=== PATIENT | female | born 1955 | race Caucasian/White ===

== ENCOUNTER 2020-07-21 09:51 | Outpatient (REF) | payer OTHER, SELFPAY ==
--- NOTE | 2020-07-21 09:58 | XR_ITS ---
EXAMINATION: XR ANKLE, LEFT CLINICAL INFORMATION: Pain left ankle. COMPARISON: None TECHNIQUE: AP, lateral, and mortise views of the left ankle. FINDINGS: There is mild medial malleolar soft tissue swelling. No visible acute fracture, dislocation or subluxation seen. A small calcaneal heel and retrocalcaneal enthesophytes are visualized. Ankle mortise and subtalar joints are normal. XR/XR ankle LT min 3V IMPRESSION: Mild medial malleolar soft tissue swelling. No visible acute fracture, dislocation or subluxation seen. Small calcaneal heel and retrocalcaneal enthesophytes.
[2020-07-21 11:53] LABS: Hematocrit 44.2 % (37-47); Hemoglobin 14.2 g/dl (12.0-16.0); Mean Corpuscular HGB Conc 32.1 g/dl (31.0-35.0); Mean Corpuscular Hemoglobin 27.5 pg (27.0-33.0); Mean Corpuscular Volume 85.7 fL (80-98); Mean Platelet Volume 11.2 fL (9.4-12.3); Platelet Count 197 X10*3/uL (160-400); Red Blood Count 5.16 X10*6/uL (4.20-5.50); Red Cell Distribution Width 13.7 % (11.0-16.0); White Blood Count 4.1 X10*3/uL (4.8-10.8)
[2020-07-21 12:12] LABS: Alanine Aminotransferase 32 U/L (0-31); Albumin Level 4.3 g/dL (3.5-5.0); Alkaline Phosphatase 88 U/L (39-117); Anion Gap 10 (12-20); Aspartate Amino Transferase 20 U/L (5-31); Bilirubin Total 1.8 mg/dL (0.0-1.0); Blood Urea Nitrogen 19 mg/dL (9-16); Calcium 8.7 mg/dL (8.4-10.2); Carbon Dioxide 30 mmol/L (22-29); Chloride 105 mmol/L (96-108); Cholesterol 160 mg/dL; Estimated Glomerular Filt Rate > 60; Glucose Fasting 93 mg/dL (60-99); HDL Cholesterol 40 mg/dL; Iron 74 mcg/dL (30-160); LDL Cholesterol Calculated 98 mg/dl; Percent Iron Saturation 22 % (15-50); Potassium 4.4 mmol/l (3.3-5.1); Sodium 141 mmol/L (135-145); Total Iron Binding Capacity 334 mcg/dL (228-428); Total Protein 7.1 g/dL (6.5-8.0); Triglycerides 110 mg/dL; Unsaturated Iron Binding 260 ug/dL
[2020-07-21 12:36] LABS: TSH reflex Free T4 1.09 mIU/mL (0.32-4.0)
== END 2020-07-21 09:52 | disposition home or self-care (01) ==
LOC: HO.HMGCLDS 09:51
PROVIDERS: PCP Internal Medicine; Visit Provider Internal Medicine
DX: Z00.00 Encounter for general adult medical examination without abnormal findings (principal); M25.572 Pain in left ankle and joints of left foot; E78.5 Hyperlipidemia, unspecified; G25.81 Restless legs syndrome; F32.9 Major depressive disorder, single episode, unspecified
CPT/HCPCS: 36415; 73610; 80053; 80061; 83540; 84443; 85027

== ENCOUNTER 2020-11-01 07:40 | Outpatient (REF) | payer OTHER, SELFPAY ==
--- NOTE | ~2020-11-01 | CT_ITS ---
EXAMINATION: CT CHEST WITH CONTRAST CLINICAL INFORMATION: Enlarged lymph nodes COMPARISON: None TECHNIQUE: Multidetector volumetric CT imaging of the chest was obtained after the administration of 65 mL of Omnipaque 350 intravenous contrast without immediate adverse reactions. Axial MIP volume rendering provided. Sagittal and coronal reformatted images were obtained. This CT examination was performed using dose optimization techniques as appropriate, variously including the following: *Automated exposure control *Adjustment of mA and/or kV according to patient size (this includes techniques or standardized protocols for targeted exams where dose is matched to indication/reason for exam; i.e. extremities or head) *Use of iterative reconstruction technique DLP: 189 mGy-cm FINDINGS: SALES CENTER MANAGER: Mediastinal and hilar lymphadenopathy. LUNGS: There are multiple pulmonary nodules. There is a 3 mm left upper lobe nodule axial image 32 series 7. There is a 5 x 6 mm left upper lobe nodule axial image 43 series 7. There is a 4 mm peripheral or subpleural right upper lobe nodule axial image 51 series 7. There is a 4 mm peripheral or subpleural left upper lobe nodule adjacent to the mediastinal surface axial image 58 series 7. There is a 6 mm right upper lobe nodule axial image 72 series 7. There is a 8 x 14 mm central right upper lobe nodule adjacent to the spine and axial image 72 series 7. There is a 3 mm peripheral or subpleural left upper lobe nodule adjacent to the mediastinum axial image 78 series 7. There is a 3 mm peripheral or subpleural lingular nodule adjacent to the fissure axial image 103 series 7. There is a 3 mm peripheral or subpleural right middle lobe nodule axial image 1:15 series 7. There is a 4 mm peripheral or subpleural left lower lobe nodule axial image 129 series 7. There is a 4 mm peripheral or subpleural left lower lobe nodule axial image 140 series 7. MEDIASTINUM: There is diffuse mediastinal and bilateral hilar lymphadenopathy. Largest lymph nodes are a 2 x 2.5 cm right paratracheal lymph node, a 2 x 3 cm right subcarinal mediastinal lymph node and a 2 x 2.5 cm AP window lymph node. The heart does not appear enlarged. There is no pericardial effusion. There is no coronary artery calcification. The thoracic aorta is normal in caliber. The visualized thyroid gland is unremarkable. PLEURA: There is no pleural effusion. No pleural mass or thickening. AXILLA: There are small right axillary and bilateral lower cervical lymph nodes. No chest wall mass is seen. UPPER ABDOMEN: The spleen is not completely imaged but may be prominent. There are 2 small 5 mm low-attenuation liver lesions that are difficult to characterize but may represent small cysts, axial image 48 series 3 in the lateral segment of the left lobe and axial image 40 series 3 high in the dome of the right lobe. OSSEOUS STRUCTURES: There are degenerative changes of the spine. CT/CT chest w con IMPRESSION: Diffuse mediastinal and bilateral hilar lymphadenopathy. Multiple bilateral pulmonary nodules, predominately in the upper lobes. Infectious, inflammatory and neoplastic processes should be considered. In particular, sarcoidosis, lymphoma and metastatic disease should be considered. The spleen is not completely imaged but appears prominent. Findings will be communicated by the [employer] work flow rpg programmer analyst Amanda Miranda.
[2020-11-01] MEDS: iohexoL 350 MG/ML 100 ML INFUS..BTL IV (09:01)
== END 2020-11-01 07:41 | disposition home or self-care (01) ==
LOC: HO.CT 07:40
PROVIDERS: PCP Internal Medicine; Visit Provider Internal Medicine
DX: R59.0 Localized enlarged lymph nodes (principal)
CPT/HCPCS: 71260; Q9967

== ENCOUNTER 2023-07-25 07:51 | Outpatient (AMB) | payer OTHER, SELFPAY ==
[2023-07-25 08:03] VITALS: BP 112/72; PULSE 63; O2SAT 97; BMI 44.3
--- NOTE | 2023-07-25 08:03 | MHC.PC.OV ---
Vital Signs 07/25/23 08:03 Height 5 ft 4 in Weight 258 lb BMI 44.3 BP 112/72 Blood Pressure Location Lt brachial Position Sitting Pulse 63 Pulse Source Pulse Oximeter Pulse Oximetry (%) 97 Oxygen Delivery Method Room Air Intake Visit Reasons: Annual PE Intake Note: Pt is here today for PE. Allergies No Known Allergies Allergy (Verified 07/25/23 08:05) Medication List - Last Reconciled 07/25/23 by Neris Schreiber MD albuterol sulfate 90 mcg/actuation (ProAir HFA) 0 mcg inhalation ascorbate calcium (vitamin C) 500 mg PO DAILY atorvastatin 20 mg PO DAILY calcium carbonate (Calcium) 600 mg PO DAILY coenzyme Q10 (Ultra CoQ10) 75 mg PO DAILY ferrous sulfate (Feosol) 325 mg PO DAILY glucosamine-chondroitin 250-200 mg (Osteo Bi-Flex) 2 tabs PO TID omega-3 fatty acids (Fish Oil Concentrate) 1,000 mg PO DAILY pregabalin 225 mg PO BEDTIME vitamin B complex (B Complex-Vitamin B12 tablet) 1 tab PO DAILY Tobacco use date assessed: 07/25/23 Fall risk assessment: No Falls in past year Last assessed Fall Risk: 07/25/23 Dental Screening Dental Screen Date: 07/25/23 Did you have a dental visit in the last 12 months?: Yes Did you have a dental problem in the last 6 months where you did not have access to dental care?: No Was dental information given to patient?: Patient has dentist HPI Annual PE HPI Details PATIENT PRESENTS FOR PHYSICAL FOR[facility]LY [facility], [facility] Medical History (Updated 07/25/23 @ 08:39 by Neris Schreiber MD) Sarcoidosis Lung nodules Back pain Mediastinal adenopathy Heel spur Abnormal colonoscopy Mammogram normal Normal Pap smear Depression RLS (restless legs syndrome) Annual physical exam Hyperlipidemia Ankle pain Surgical History No pertinent past surgical history Family History Father Stroke Mother No problems noted. Brother No problems noted. Sister No problems noted. Sister No problems noted. Son No problems noted. Son No problems noted. Social History Housing: House Alcohol intake: never Patient Tobacco Use Status: Never used Tobacco e-Cigarette/Vaping Use: Never Used service: No Current occupational status: employed Cognitive needs: No Hearing needs: No Vision needs: Yes Questionnaire PHQ-9 Over the last 2 weeks, how often have you been bothered by any of the following problems? 1. Little interest or pleasure in doing things: not at all 2. Feeling down, depressed, or hopeless: not at all 3. Trouble falling or staying asleep, or sleeping too much: several days 4. Feeling tired or having little energy: several days 5. Poor appetite or overeating: several days 6. Feeling bad about yourself - or that you are a failure or have let yourself or your family down: not at all 7. Trouble concentrating on things, such as reading the newspaper or watching television: several days 8. Moving or speaking so slowly that other people could have noticed. Or the opposite - being so fidgety or restless that you have been moving around a lot more than usual: not at all 9. Thoughts that you would be better off or of hurting yourself in some way: not at all Total score: 4 Depression Screening Interpretation: Negative Depression Screening Done: Yes Source: Developed by Drs. Stephan Goodman, Jasmyn Yun, Jose Alan and colleagues, with an educational hazel from [employer] Thrive Questionnaire Date Thrive assessed: 07/25/23 I am a: Patient What is your living situation today?: I have a steady place to live Within the past 12 months, did the food you bought not last and you didn't have the money to get more?: Never true Within the past 12 months, did you worry whether your food would run out before you got money to buy more?: Never true Do you have trouble paying for medicines?: No Do you have trouble getting transportation to medical appointments?: No Do you have trouble paying your heating and electricity bill?: No Do you have trouble taking care of your child, family member or friend?: No Do you have trouble with day-to-day activities such as bathing, preparing meals, shopping, managing finances, etc.?: No Are you currently unemployed and looking for a job?: No Are you interested in more education?: No Please select the resources that you would like help with: None Currently or been in a relationship where the following occur: no concerns reported AUDIT C Alcohol Use Questionnaire (AUDIT-C) 1. How often do you have a drink containing alcohol?: Never 3. How often do you have six or more drinks on one occasion?: Never Total Score: 0 JACQUELIN-7 AMB Questionnaire JACQUELIN-7 Date JACQUELIN - 7 assessed: 07/25/23 Feeling nervous, anxious, or on edge: 0 = Not at all Not being able to stop or control worryin = Not at all Worrying too much about different things: 0 = Not at all Trouble relaxin = Not at all Being so restless that it is hard to sit still: 0 = Not at all Becoming easily annoyed or irritable: 0 = Not at all Feeling afraid as if something awful might happen: 0 = Not at all Total JACQUELIN-7 score (0-4 normal; 5-9 mild; 10-14 moderate; 15-21 severe): 0 Source: Developed by Drs. Stephan Goodman, Jasmyn Yun, Jose Alan and colleagues, with an educational hazel from [employer] Review of Systems Const All systems reviewed & are unremarkable except as noted in HPI and below Reports no additional complaints Eyes Reports no additional complaints ENT Reports no additional complaints Card Reports no additional complaints Resp Reports no additional complaints GI Reports no additional complaints Reports no additional complaints Musc Reports no additional complaints Physical exam (Primary Care) Vital Signs: Last Vital Signs Pulse 63 07/25/23 08:03 Pulse Ox 97 07/25/23 08:03 Oxygen Delivery Method Room Air 07/25/23 08:03 BMI result Body Mass Index 44.3 Tobacco/Smoking Status: Tobacco use Status Tobacco use date assessed 10/29/22 10/29/22 09:49 Patient Tobacco Use Status Never used Tobacco 10/29/22 09:40 e-Cigarette/Vaping Use Never Used 10/29/22 09:40 Depression Screening Interpretation: Negative Thrive Assessment: Date of Thrive Assessment Date Thrive assessed 07/24/22 10/29/22 09:40 Currently or been in a relationship where the following occur: no concerns reported Const General: no acute distress HENMT Head: Yes normal to inspection Ears: hearing grossly normal bilaterally Face and sinus: Yes normal facial exam Mouth: Normal oral and palatal mucosa present Teeth and gingiva: dentition normal Eyes General: appearance normal, both eyes and all related structures Neck Neck: Yes no lymphadenopathy and Yes supple Resp Effort & Inspection: normal respiratory effort Auscultation: clear to auscultation bilaterally Cardio Rhythm: regular rhythm Heart sounds: S1 normal heart sound present and S2 normal heart sound present GI Inspection: Yes normal to inspection Palpation (GI): Soft to palpation Percussion: Yes normal to percussion Auscultation: normal bowel sounds Assessment and Plan Assessment & Plan (1) Postmenopausal: Code(s): Z78.0 - Asymptomatic menopausal state Plan: Patient will schedule DEXA at [facility] (2) Seizure: Comment: Hospitalized at [facility] 10/27 ,? OD on Lyrica, f/u [facility] neurology, off Keppra Code(s): R56.9 - Unspecified convulsions Plan: Follow-up with neurology , on lower dose of Lyrica (3) Sarcoidosis: Comment: CT annually, [facility], Dr. Marcus Code(s): D86.9 - Sarcoidosis, unspecified (4) Abnormal colonoscopy: Comment: 05/2018 Dr. Del Castillo 1 polyp 2mm, tubular adenoma, colonoscopy scheduled 08/30 Code(s): R93.3 - Abnormal findings on diagnostic imaging of other parts of digestive tract (5) Mammogram normal: Comment: 2022 [facility] (6) LACHELLE (obstructive sleep apnea): Comment: on Cpap, f/u neurology Code(s): G47.33 - Obstructive sleep apnea (adult) (pediatric) (7) Obesity: Comment: BMI 44 07/30 Code(s): E66.9 - Obesity, unspecified Plan: Well-balanced diet decrease caloric intake increase physical activity and weight loss discussed with the patient. She will try Zepbound and follow-up in 2-3 months if her insurance covers the medication Orders: Orders XR DEXA axial skeleton Today Z78.0 - Asymptomatic menopausal state Medications: New tirzepatide (weight loss) (Zepbound) 2.5 mg (0.5 mL) subcut QWEEK 4 weeks 2 mL 1RF silver sulfadiazine 1% (Silvadene) apply a 1.5 mm thickness 1 appl topical DAILY 85 grams 1RF Coding Level of Care Code Est Pt Prev Care >65y(86962) Diagnoses Postmenopausal Z78.0 Seizure R56.9 Sarcoidosis D86.9 Abnormal colonoscopy R93.3 Mammogram normal LACHELLE (obstructive sleep apnea) G47.33 Obesity E66.9
== END 2023-07-25 08:46 | disposition home or self-care (01) ==
PROVIDERS: PCP Internal Medicine; Visit Provider Internal Medicine
DX: Z00.00 Encounter for general adult medical examination without abnormal findings (principal); R56.9 Unspecified convulsions; E66.9 Obesity, unspecified; Z68.41 Body mass index [BMI] 40.0-44.9, adult; D86.9 Sarcoidosis, unspecified; Z78.0 Asymptomatic menopausal state; R93.3 Abnormal findings on diagnostic imaging of other parts of digestive tract; G47.33 Obstructive sleep apnea (adult) (pediatric)
CPT/HCPCS: 99397

== ENCOUNTER 2024-08-18 07:55 | Outpatient (AMB) | payer OTHER, SELFPAY ==
--- OUTSIDE RECORDS SUMMARY | 2024-08-18 07:57 | XMS_ITS ---
Author Organization [facility] [place] Address [address] [place] [address] Care Team Providers Care Marketing Research Coordinator Name Role Phone Neris Schreiber MD Primary Care Provider Unavaila ble Black, Angi Unavailable [phone] Allergies No Known Allergies REASON FOR VISIT Foot pain, Swelling, Heel pain Medications Medication SIG (Take, Route, Frequency, Duration) Notes Start Date End Date Status Work Note . . . 11/18/2023 Active Night Splint AFO - L1930 1 wear at rest for 30 days Active Compression Stockings 20-30mm Hg 1 pair wear daily for 30 days Active Atorvastatin Calcium 20 MG 1 tablet Orally Once a day Active Pregabalin Active Medrol bartolo 4mg as directed orally a s directed for 6 days 11/18/2023 Not-Taking Social History Tobacco Use: Social History Observation Description Date Details (start date - stop date) Never Smoker NA - NA Tobacco use other than smoking: Question Answer Notes Are you an other tobacco user? No Tobacco Control (Standard) Question Answer Notes Tobacco use: Nonsmoker Additional Findings: Tobacco non-user Current no nsmoker AUDIT-C (Standard) Question Answer Notes Did you have a drink containing alcohol in the p ast year? 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 ; Flat foot [pes planus] (acquired), left foot M21.42 ; Peroneal tendinitis of left lower extremity M76.72 and Plantar fasciitis of left foot M72.2 Assessments Encounter Date Diagnosis (ICD Code) Assessment Notes Treatment Notes Treatment Clinical Notes Section Notes 08/03/2024 Edema, lower extremity (ICD-10 - R60.0) 08/03/2024 Pain in left foot (ICD-10 - M79.672) 08/03/2024 Hypertrophy of bone, left ankle and foot (ICD-10 - M89.372) 08/03/2024 Flat foot [pes planus] (acquired), left foot (ICD-10 - M21.42) 08/03/2024 Peroneal tendinitis of left lower extremity (ICD-10 - M76.72) 08/03/2024 Plantar fasciitis of left foot (ICD-10 - M72.2) Plan Of Treatment Next Appt Details Follow Up: prn, Reason: Progress Notes * Melisa HENRYveDOB:01/1956 (68 yo F)Acc No.[id number]:08/03/2024 Progress Note Patient:?Sergio HENRY Provider:?Angi Gayle DPM :1955???Age:68 Y???Sex:Female D ate:08/03/2024 Address:[address] [place] [address], [place] Pcp:Neris Schreiber MD Subjective: * Chief Complaints: * ???Foot painSwellingHeel melissa n * HPI: ???Foot Pain:?Nature:?aching, pulling, tenderness, throbbing, weakness.?Location:?LEFT.?Duration:?, several months.?Onset:?denies trauma.?Course:?, intermittent.?Aggravated:?any pressure, standing, walking.?Treatments:?rest/alter normal daily activity, ice , change in shoes , innersoles.medrol bartolo.?Swelling:?Location:?Both feet/leg.?Duration:?several weeks.?Course:?, improved.?Treatment:?compression stockings.?Heel pain:?Course:?resolved.? * ROS:?General/Constitutional:?Nausea?denies.?Vomiting?denies.?Hunger Thirst?denies.?Loss appetite?denies.?Chills?denies.?Fatigue?denies.?Fever?denies.?Night Sweats?denies.?Unexplained weight loss?denies.?Unexplained weight gain?denies.?HEENTM:?Dentures?denies.?Dizziness?denies.?Glasses/contacts?admits.?Retinopathy?de nies.?Blurred/double vision?denies.?TMJ?denies.?Discharge/drainage?denies.?Implants?denies.?Sore throat?denies.?Dental implants?denies.?Hard of hearing ?denies.?Difficulty chewing/swallowing/speaking?denies.?Nose bleeds?denies.?Sore mouth?denies.?Respiratory:?On Oxygen?denies.?Pneumonia/pleurisy?denies.?Bronchitis?denies.?Emphysema?denies.?C oughing?denies.?Cough blood?denies.?Shortness of breath?denies.?Wheezing?denies.?Cardiovascular:?Pacemaker?denies.?MVP?denies.?WPW?denies.?CHF?denies.?Heart attack?denies.?Septal defect?denies.?Rapid beat?denies.?Chest pain ?denies.?Atrial Fib.?denies.?Murmur/Palpitations?denies.?Gastrointestinal:?Hemorrhoids?denies.?Stomach/Abdominal pain?denies.?Dark blood stool?denies.?Irritable bowel ?denies.?Constipation?denies.?Diarrhea?denies.?Hematology:?Swelling?admits.?Clots?denies.?Varicose Veins?, admits.?Bruising?denies.?Bleeding problem?denies.?Genitourinary:?Blood urine?denies.?Frequent/Painfu/urination/bladder control?denies.?Kidney stones?denies.?Infection (UTI)?denies.?Nephropathy?denies.?sex trans dis (STD)?denies.?Prostate?denies.?Musculoskeletal:?Hammertoes?denies.?Bunions?denies.?Back Pain?denies.?Muscle Cramps/ Resting?denies.?Muscle cramps / walking?denies.?Generalized aches and pains?admits.?Weakness?denies.?Integ.:?Mendieta?denies.?Scars?denies.?Corns/calluses?denies.?Ingrown nails?denies.?Painful nails?denies.?Open Sores?denies.?Rashes?denies.?Neurologic:?Difficulty sleeping?denies.?Brain disorder?denies.?Numbness?denies.?Balance trouble?denies.?Confusion?denies.?Fainting/blackouts?denies.?Tingling?denies.?Tr emors?denies.? * Medical History:? * Surgical History:?cataract s urgery 08/2023 * Hospitalization/Major Diagno stic Procedure:?Denies Past Hospitalization * Family History:?Mother: anneliese tijerina.?Father: , diagnosed with Unspecified cerebral artery occlusion with cerebral infarction.? * Social History:?Tobacco Use:?Tobacco Use/Smoking?Are you a nonsmoker.?Tobacco use other than smoking?Are you an other tobacco user??No ?Tobacco Control (Standard)?Tobacco use:?Nonsmoker ?Additional Findings: Tobacco non-user?Current nonsmoker ???Drugs/Alcohol:?Drugs?Have you used drugs other than those for medical reasons in the past 12 months??No ???Miscellaneous:?Caffeine: yes, 3-5 cups per day. ?Children: yes, 2. ?Exercise: yes, walking. ?Marital status: . ?Occupation: Works Full-time. ???Drug/Alcohol:?AUDIT-C (Standard)?Did you have a drink containing alcohol in the past year??No ?Points?0 ?Interpretation?Negative * Medications:?TakingPregabali n Atorvastatin Calcium 20 MG Tablet 1 tablet Orally Once a day Night Splint AFO - L1930 1 wear at rest Work Note . . . . Compression Stockings 20-30mm Hg closed toe- knee high 1 pair wear daily Taking Pregabalin Taking Atorvastatin Calcium 20 MG Tablet 1 tablet Orally Once a day Taking Night Splint AFO - L1930 1 wear at rest Taking Work Note . . . . Taking Compression Stockings 20- 30mm Hg closed toe- knee high 1 pair wear daily Not-Taking/PRNMedrol bartolo 4mg Tablet Therapy Pack as directed orally as directed Medication List reviewed and reconciled with the patientNot-Taking/PRN Medrol bartolo 4mg Tablet Therapy Pack as directed orally as directed Medication List reviewed and reconciled with the patient * Allergies:?N.K.D.A.yes[Aller gies Verified] Objective: * Vitals:?Ht: 5ft 7in, Wt:260, BMI:40.72, Shoe size: 10, BP:130/74mm Hg, Ht-cm: 170.18 cm, Wt-k.94 kg. * Examination: ???General Examination: ?GENERAL APPEARANCE:?Reveals a pleasant, alert, well nourished, well- developed, well hydrated individual, who demonstrates proper attention to hygiene/body habitus, and is in no acute distress, Pt serves as own historian for office visit today.?ORIENTED:?person, place, and time.?Orthopedic: ?GAIT ABNORMALITY:?antalgic.?FOOT MORPHOLOGY:? Pes Planus structure, Decreased Ankle joint dorsiflexion ROM, knee extended ,?.?TENDONITIS:? Pain on palpation, inflammation, and fusiform swelling to, Peroneal Complex, LEFT, 80?percent LESS.?FOOTWEAR:?good condition, exhibit proper fit and accommodation for pedal deformities. OT were inspected and noted to be worn, but in good condition giving proper support at the present time.?Neurological: ?SENSORY:?Neurological exam reveals intact sensorium, pain sensation normal, vibration sensation intact, pinprick sensation is normal in the lower extremities, Pt denies, anesthesia, burning, paresthesia, tingling, B/L.?Vascular: ?DP PULSES (B):?2/4, B/L.?PT PULSES (B):?2/4, B/L.?CAPILLARY FILL TIME:?immediate, all digits, B/L.?TROPHIC CONDITION-TEXTURE/ELASTICITY/TURGOR/HAIR GROWTH (B):?normal, B/L.?TEMPERTURE GRADIENT (C):?normal, warm to cool, proximal to distal, B/L.?EDEMA (C):?1/4, non-pitting, Leg(s), Ankle(s), B/L.?ALEJANDRA'S SIGN:?absent, B/L.?PALPABLE CORDS:?absent, B/L.?Dermatologic: ?SKIN FINDINGS:?Skin exam reveals normal color, texture, elasticity, and turgor. There are no masses, nor excrescences. The interspaces are clear, B/L.?Heel Pain: ?INSPECTION REVEALS:?NO Pain on Palpation to Plantar Fascia med. and central bands, intrinsic musc., infra-calcaneal bursa, and med calc tubercle, LEFT foot.? Assessment: * Assessment: 1.?Pain in left foot - M79.6 72???2.?Edema, lower extremity - R60.0 (Primary)???Specify :Response to treatment - Improvement???3.?Hypertrophy of bone, left ankle and foot - M89.372???4. Flat foot [pes planus] (acquired), left foot - M21.42???5.?Peroneal tendinitis of left lower extremity - M76.72???Specify :?Response to treatment - Improvement???6.?Plantar fasciitis of left foot - M72.2???Specify :Resolved??? Plan: * Treatment: * Procedure Codes:? * Preventive Medicine:? ??Counseling:?Discussion:?-13: Office or other outpatient visit for the evaluation and management of an established patient, which required a medically appropriate history and/or examination and LOW level of DECISION MAKING for: 1 STABLE ACUTE UNCOMPLICATED PROBLEM, 2 OR MORE MINOR PROBLEMS, OR 1 STABLE CHRONIC PROBLEM, THAT POSE(S) A LOW RISK FOR MORBIDITY/MORTALITY. The visit on the day of the encounter encompassed interpreting the data and educating the patient as to the nature of their condition, treatment options available according to their individual PMH, meds, allergies, and overall health/living conditions, as well as any potential risks or complications that may occur from a failure to adhere to, and participate in, the recommended course of therapy. The discussion included a complete verbal, and/or written explanation of the examination results, any x-rays taken, the proposed diagnosis, and outline of the treatment plan. A schedule for future care needs was also explained. The patient verbalized an understanding of the instructions at this time and agreed to be an active participant in their treatment. If the patient should think of any questions or concerns after the visit, I have encouraged the patient to call the office.?Edema:?Discussed other tx options for the patients condition, The patient wishes to continue with the present treatment plan for their condition given its success.?Heel pain:?, Given recent successful results to treatment, the patient wishes to continue with the present plan for their condition.Pt will stop using the night splint but will continue with supportive shoes and stretching.?Myositis/Tendonitis:?Discussed other tx options for the patients condition, given recent successful results to treatment, the patient wishes to continue with the present plan for their condition.? * Follow Up:?prn * Images: * Sign off status: Completed true * Provider:?Angi Gayle DPM Date:?2024 Generated for Jarrod kemp/Matt/Julio Cesaritting on:?08/18/2024 07:57 AM EST History and Physical Notes * HPI (History of Present Illness) Category Sub-Category Detail Notes Category Not es Heel pain Course: resolved Foot Pain Nature: aching, pulling, tenderness, throbbing, weakness Location: LEFT Duration: , several months Onset: denies trauma Course: , intermittent Aggravated: any pressure, standi ng, walking Treatments: rest/alter normal [place] activity, ice , change in shoes , innersoles.medrol bartolo Swelling Location: Both feet/leg Duration: several weeks Course: , improved Aggravating factors: Treatment: compression stocking s Examination Category Sub-Category Detail Notes Category Not es Heel Pain INSPECTION REVEALS: NO Pain on P alpation to Plantar Fascia med. and central bands, intrinsic musc., infra-calcaneal bursa, and med calc tubercle, LEFT foot Neurological SENSORY: Neurological exa m reveals intact sensorium, pain sensation normal, vibration sensation intact, pinprick sensation is normal in the lower extremities, Pt denies, anesthesia, burning, paresthesia, tingling, B/L Dermatologic SKIN FINDINGS: Skin exam reveal s normal color, texture, elasticity, and turgor. There are no masses, nor excrescences. The interspaces are clear, B/L Orthopedic GAIT ABNORMALITY: antalgic FOOT MORPHOLOGY: Pes Planus structure , Decreased Ankle joint dorsiflexion ROM, knee extended , FOOTWEAR: good condition, exhi bit proper fit and accommodation for pedal deformities. OT were inspected and noted to be worn, but in good condition giving proper support at the present time TENDONITIS: Pain on palpation, i nflammation, and fusiform swelling to, Peroneal Complex, LEFT, 80 percent LESS General Examination GENERAL APPEARANCE: Reveals a pleasant, alert, well nourished, well-developed, well hydrated individual, who demonstrates proper attention to hygiene/body habitus, and is in no acute distress, Pt serves as own historian for office visit today ORIENTED: person, place, and t dwight Vascular DP PULSES (B): 2/4, B/L PT PULSES (B): 2/4, B/L CAPILLARY FILL TIME: immediate, all digi ts, B/L TEMPERTURE GRADIENT (C): normal, warm to cool, proximal to distal, B/L TROPHIC CONDITION-TEXTURE/ELASTICITY/TURGOR/HAIR GROWTH (B): normal, B/L EDEMA (C): 1/4, non-pitting, Le g(s), Ankle(s), B/L ALEJANDRA'S SIGN: absent, B/L PALPABLE CORDS: absent, B/L Heel Pain INSPECTION:
--- OUTSIDE RECORDS SUMMARY | 2024-08-18 07:57 | XMS_ITS ---
Author Organization [facility] Address [address] [place] [address] Care Team Providers Care Leno Sewer Name Role Phone Neris Schreiber MD Primary Care Provider Unavaila ble Black, Angi Unavailable [phone] REASON FOR VISIT Compression stockings Medications Medication SIG (Take, Route, Frequency, Duration) Notes Start Date End Date Status Compression Stockings 20-30mm Hg 1 pair wear daily for 30 days Active Encounters Encounter Location Date Provider Diagnosis [address] [address] 05/21/2024 Angi Black Edema, lower extremity R60.0 Assessments Encounter Date Diagnosis (ICD Code) Assessment Notes Treatment Notes Treatment Clinical Notes Section Notes 05/21/2024 Edema, lower extremity (ICD-10 - R60.0) Plan Of Treatment Medication Medication Name Sig Start Date Stop Date Notes Compression Stockings 20-30mm Hg 1 pair wear daily for 30 days Progress Notes * Melisa HENRYveDOB:01/1956 (68 yo F)Acc No.[id number]:05/21/2024 Patient:?Sergio HENRY :1955???Age:68 Y???Sex:Female Address:[address] [place] [address], [address] * Refills? Refill Compression Stockings closed toe- knee high, 20-30mm Hg, wear, 2, 1 pair, daily, 30 days, Refills=2 Subjective: * Chief Complaints: * ???Compression stockings * Medical History:? * Surgical History:? * Hospitalization/Major Diagno stic Procedure:? * Medications:? Objective: * Vitals:? * Physical Examination:? Assessment: * Assessment: 1.?Edema, lower extremity - R60.0 (Primary)???Specify :Acute problem, Uncomplicated (3), Rx Management (4)??? Plan: * Treatment: * Procedure Codes:? * true * Date:? Generated for Jarrod kemp/Matt/eTransmitting on:?08/18/2024 07:57 AM EST
--- OUTSIDE RECORDS SUMMARY | 2024-08-18 07:57 | XMS_ITS | Patient Health Record ---
[facility] Address [address] [place] [address] Care Team Providers Care Developmental Services Worker Name Role Phone Candie MURRAY, Neris Primary Care Provider Unavaila pavan Gayle, Angi Unavailable [phone] PericDonna damian Unavailable [phone] Allergies No Known Allergies Results Component Value Reference Range Notes X ray : Foot, left 3V Reviewed date:11/18/2023 08:58:59 AM Interpretation:See Examination above Performing Lab: Notes/Report: See Examination above Reason For Referral No Information Medications Medication SIG (Take, Route, Frequency, Duration) Notes Start Date End Date Status Work Note . . . 11/18/2023 Active Night Splint AFO - L1930 1 wear at rest for 30 days Active Medrol bartolo 4mg as directed orally a s directed for 6 days 11/18/2023 Not-Taking Compression Stockings 20-30mm Hg 1 pair wear daily for 30 days Active Atorvastatin Calcium 20 MG 1 tablet Orally Once a day Active Pregabalin Active Social History Tobacco Use: Social History Observation [...] ast year? No Points 0 Interpretation Negative Problems Problem Type SNOMED Code ICD Code Onset Dates Problem Status W/U Status Risk Notes Problem Localized, primary osteoarthritis of the ankle and/or foot (732601510) Primary osteoarthritis, left ankle and foot (M19.072) Active confirmed Problem Acquired hammer toe of left foot (9881597388300741 ) Other hammer toe(s) (acquired), left foot (M20.42) Active confirmed Problem Plantar fasciitis of left foot (4774581767876599 1) Plantar fasciitis of left foot (M72.2) Active confirmed Problem Acquired deformity of left foot (1736099201212102 4) PlantarFlexion of metatarsal of left foot (M21.6X2) Active confirmed Problem Acquired cavus deformity of left foot (disorder) (2452323800343769 ) Cavus deformity of left foot (Q66.72) Active confirmed Problem Interstitial myositis (30433088) Interstitial myositis of left foot (M60.172) Active confirmed Vital Signs Blood pressure diastolic 74 mm Hg 08/03/2024 Height 5ft 7in in 08/03/2024 Blood pressure systolic 130 mm Hg 08/03/2024 Weight 260 lbs 08/03/2024 BMI 40.72 kg/m2 08/03/2024 Encounters Encounter Location Date Provider Diagnosis [address] [address] 11/18/2023 Angi Black Plantar fasciitis of left foot M72.2 ; Pain in left foot M79.672 ; Calcaneal spur, left foot M77.32 ; Interstitial myositis of left foot M60.172 ; Bursitis of left foot M77.52 ; Hypertrophy of bone, 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 [address] [place] [address] 11/27/[address] [facility] [address] [facility] [place] [address] 05/21/2024 Angi Black Edema, lower extremi ty R60.0 Assessments Encounter Date Diagnosis (ICD Code) Assessment Notes Treatment Notes Treatment Clinical Notes Section Notes 11/18/2023 Pain in left foot (ICD-10 - M79.672) 11/18/2023 Plantar fasciitis of left foot (ICD-10 - M72.2) Patient Educated with: HEEL CORD STRETCHES.pdf (HEEL CORD STRETCHES.pdf) Patient Educated with: RICE THERAPY.pdf (RICE THERAPY.pdf) 12/03/2023 Pain in left foot (ICD-10 - M79.672) 12/03/2023 Plantar fasciitis of left foot (ICD-10 - M72.2) 01/27/2024 Pain in left foot (ICD-10 - M79.672) 01/27/2024 Plantar fasciitis of left foot (ICD-10 - M72.2) 05/18/2024 Plantar fasciitis of left foot (ICD-10 - M72.2) 05/18/2024 Edema, lower extremity (ICD-10 - R60.0) 05/21/2024 Edema, lower extremity (ICD-10 - R60.0) 08/03/2024 Pain in left foot (ICD-10 - M79.672) 08/03/2024 Edema, lower extremity (ICD-10 - R60.0) 08/03/2024 Hypertrophy of bone, left ankle and foot (ICD-10 - M89.372) 01/27/2024 Calcaneal spur, left foot (ICD-10 - M77.32) 05/18/2024 Pain in left foot (ICD-10 - M79.672) 12/03/2023 Calcaneal spur, left foot (ICD-10 - M77.32) 11/18/2023 Calcaneal spur, left foot (ICD-10 - M77.32) 11/18/2023 Interstitial myositis of left foot (ICD-10 - M60.172) 12/03/2023 Interstitial myositis of left foot (ICD-10 - M60.172) 01/27/2024 Interstitial myositis of left foot (ICD-10 - M60.172) 08/03/2024 Flat foot [pes planus] (acquired), left foot (ICD-10 - M21.42) 05/18/2024 Calcaneal spur, left foot (ICD-10 - M77.32) 08/03/2024 Peroneal tendinitis of left lower extremity (ICD-10 - M76.72) 05/18/2024 Interstitial myositis of left foot (ICD-10 - M60.172) 01/27/2024 Bursitis of left foot (ICD-10 - M77.52) 12/03/2023 Bursitis of left foot (ICD-10 - M77.52) 11/18/2023 Bursitis of left foot (ICD-10 - M77.52) 11/18/2023 Hypertrophy of bone, left ankle and foot (ICD-10 - M89.372) 01/27/2024 Hypertrophy of bone, left ankle and foot (ICD-10 - M89.372) 12/03/2023 Hypertrophy of bone, left ankle and foot (ICD-10 - M89.372) 08/03/2024 Plantar fasciitis of left foot (ICD-10 - M72.2) 05/18/2024 Bursitis of left foot (ICD-10 - M77.52) 12/03/2023 Flat foot [pes planus] (acquired), left foot (ICD-10 - M21.42) 01/27/2024 Flat foot [pes planus] (acquired), left foot (ICD-10 - M21.42) 05/18/2024 Hypertrophy of bone, left ankle and foot (ICD-10 - M89.372) 11/18/2023 Flat foot [pes planus] (acquired), left foot (ICD-10 - M21.42) 11/18/2023 Peroneal tendinitis of left lower extremity (ICD-10 - M76.72) 01/27/2024 Peroneal tendinitis of left lower extremity (ICD-10 - M76.72) 12/03/2023 Peroneal tendinitis of left lower extremity (ICD-10 - M76.72) 05/18/2024 Flat foot [pes planus] (acquired), left foot (ICD-10 - M21.42) 05/18/2024 Peroneal tendinitis of left lower extremity (ICD-10 - M76.72) Plan Of Treatment Pending Test Test Name Order Date ,[id number] TENDON SHEATH/LIGAMENT 0 02/07/2017,[id number] TENDON SHEATH/LIGAMENT 0 03/07/201730961,D1752-XGE TENDON SHEATH/LIGAMENT 1 Insurance Providers Payer Name Payer Address Payer Phone Subscriber Number Group Number Insured Name Patient Relationship to Insured Coverage Start Date Coverage End Date [facility] [address] [facility] [place] [id number] Alessia Henry Self - patient is the insured Medical (General) History Medical History History ICD Code Arthritis asthma Back,Hip,and Knee pain CAD (Cholesterol) Cataracts Surgical History Surgery Date(Month/Year) cataract surgery 08/2023
--- OUTSIDE RECORDS SUMMARY | 2024-08-18 07:57 | XMS_ITS ---
Author Organization [facility] Address [address] [place] [address] Care Team Providers Care Satellite Communications Engineer Name Role Phone Neris Schreiber MD Primary Care Provider Unavaila ble Black, Angi Unavailable [phone] Allergies No Known Allergies REASON FOR VISIT Heel pain, Foot pain, Swelling Medications Medication SIG (Take, Route, Frequency, Duration) Notes Start Date End Date Status Compression Stockings 20-30mm Hg 1 pair wear daily for 30 days Active Medrol bartolo 4mg as directed orally a s directed for 6 days 11/18/2023 Not-Taking Atorvastatin Calcium 20 MG 1 tablet Orally Once a day Active Night Splint AFO - L1930 1 wear at rest for 30 days Active Work Note . . . 11/18/2023 Active Pregabalin Active Social History Tobacco Use: Social History Observation Description Date Details (start date - stop date) Never Smoker NA - NA Tobacco Use/Smoking Question Answer Notes Are you a: nonsmoker Additional Findings: Tobacco Non-User Current no n-smoker Alcohol Screen Question Answer Notes Did you have a drink containing alcohol in the p ast year? No Points 0 Interpretation Negative Tobacco use other than smoking: Question Answer Notes Are you an other tobacco user? No Problems Problem Type SNOMED Code ICD Code Onset Dates Problem Status W/U Status Risk Notes Problem Plantar fasciitis of left foot ([id number] 9101) Plantar fasciitis of left foot (M72.2) Active confirmed Vital Signs Height 5ft 7in in 05/18/2024 Weight 260 lbs 05/18/2024 BMI 40.72 kg/m2 05/18/2024 Encounters Encounter Location Date Provider Diagnosis [facility] [address] 05/18/2024 Angi Irwin Plantar fasciitis of left foot M72.2 ; Edema, lower extremity R60.0 ; Pain in left foot M79.672 ; Calcaneal spur, left foot M77.32 ; Interstitial myositis of left foot M60.172 ; Bursitis of left foot M77.52 ; Hypertrophy of bone, left ankle and foot M89.372 ; Flat foot [pes planus] (acquired), left foot M21.42 and Peroneal tendinitis of left lower extremity M76.72 Assessments Encounter Date Diagnosis (ICD Code) Assessment Notes Treatment Notes Treatment Clinical Notes Section Notes 05/18/2024 Plantar fasciitis of left foot (ICD-10 - M72.2) 05/18/2024 Edema, lower extremity (ICD-10 - R60.0) 05/18/2024 Pain in left foot (ICD-10 - M79.672) 05/18/2024 Calcaneal spur, left foot (ICD-10 - M77.32) 05/18/2024 Interstitial myositis of left foot (ICD-10 - M60.172) 05/18/2024 Bursitis of left foot (ICD-10 - M77.52) 05/18/2024 Hypertrophy of bone, left ankle and foot (ICD-10 - M89.372) 05/18/2024 Flat foot [pes planus] (acquired), left foot (ICD-10 - M21.42) 05/18/2024 Peroneal tendinitis of left lower extremity (ICD-10 - M76.72) Plan Of Treatment Medication Medication Name Sig Start Date Stop Date Notes Compression Stockings 20-30mm Hg 1 pair wear daily for 30 days Next Appt Details Follow Up: 2 Months, Reason: Progress Notes * Glen HENRYOB:01/1956 (68 yo F)Acc No.[id number]:05/18/2024 Progress Notes Patient:?Sergio HENRY Provider:?Angi Gayle DPM :1955???Age:68 Y???Sex:Female D ate:05/18/2024 Address:[address] [place] [address] , [facility], [id number] Pcp:Neris Schreiber MD Subjective: * Chief Complaints: * ???Heel painFoot painSwellin g * HPI: ???Heel pain:?Location:?Proximal plantar aspect of Heel, LEFT.?Duration:?several months.?Course:?improved , at approximately 90 %.?Aggravated:?standing, walking, walking first thing in the morning/after rest.?Treatments:?rest/alter normal daily activity , change in shoes , stretching,inserts,medrol bartolo, new balance sneakers, AFO-nightsplint.?Misc:?? issues with work shoes and inserts.?Foot Pain:?Nature:?aching, pulling, tenderness, throbbing, weakness.?Location:?LEFT.?Duration:?, several months.?Onset:?denies trauma.?Course:?, improved , at 90 %.?Aggravated:?any pressure, standing, walking.?Treatments:?rest/alter normal daily activity, ice , change in shoes , innersoles.medrol bartolo.?Swelling:?Location:?Both feet/leg.?Duration:?several weeks.?Course:?worse.? * ROS:?General/Constitutional:?Nausea?denies.?Vomiting?denies.?Hunger Thirst?denies.?Loss appetite?denies.?Chills?denies.?Fatigue?denies.?Fever?denies.?Night Sweats?denies.?Unexplained weight loss?denies.?Unexplained [...] Procedure:?Denies Past Hospitalization * Family History:?Mother: anneliese stephenson?Father: , diagnosed with Unspecified cerebral artery occlusion with cerebral infarction.? * Social History:?Tobacco Use:?Tobacco Use/Smoking?Are you a:?nonsmoker ?Additional Findings: Tobacco Non-User?Current non-smoker ?Tobacco use other than smoking?Are you an other tobacco user??No ???Drugs/Alcohol:?Drugs?Have you used drugs other than those for medical reasons in the past 12 months??No ?Alcohol Screen?Did you have a drink containing alcohol in the past year??No ?Points?0 ?Interpretation?Negative ???Miscellaneous:?Caffeine: yes, 3-5 cups per day. ?Children: yes, 2. ?Exercise: yes, walking. ?Marital status: . ?Occupation: Works Full-time. * Medications:?TakingPregabali n Atorvastatin Calcium 20 MG Tablet 1 tablet Orally Once a day Night Splint AFO - L1930 1 wear at rest Work Note . . . . Taking Pregabalin Taking Atorvastatin Calcium 20 MG Tablet 1 tablet Orally Once a day Taking Night Splint AFO - L1930 1 wear at rest Taking Work Note . . . . Not-Taking/PRNMedrol bartolo 4mg Tablet Therapy Pack as directed orally as directed Medication List reviewed and reconciled with the patientNot-Taking/PRN Medrol bartolo 4mg Tablet Therapy Pack as directed orally as directed Medication List reviewed and reconciled with the patient * Allergies:?N.K.D.A.yes[Aller gies Verified] Objective: * Vitals:?Ht: 5ft 7in, Wt:260, BMI:40.72, Shoe size: 10, Ht-cm: 170.18 cm, Wt-k.93 kg. * Examination: ???General Examination: ?GENERAL APPEARANCE:?Reveals a pleasant, alert, well nourished, well- developed, well hydrated individual, who demonstrates proper attention to hygiene/body habitus, and is in no acute distress, Pt serves as own historian for office visit today.?ORIENTED:?person, place, and time.?Heel Pain: ?INSPECTION:? Pain on Palpation to Plantar Fascia med. and central bands, intrinsic musc., infra-calcaneal bursa, and med calc tubercle , LEFT foot, No pain: posterior/superior heel, achilles bursa/tendon, sinus tarsi, peroneals, or with lateral heel compression; no limited STJ ROM, calor, or ecchymosis, LEFT foot, States approximately 90 % LESS.?Orthopedic: ?GAIT ABNORMALITY:?antalgic.?FOOT MORPHOLOGY:? Pes Planus structure, Decreased Ankle joint dorsiflexion ROM, knee extended ,?.?TENDONITIS:? Pain on palpation, inflammation, and fusiform swelling to, Peroneal Complex, LEFT, 90?percent LESS.?FOOTWEAR:?pt did not present with work shoes however present shoes have 2 pairs of inserts in each shoe- removed 1.?Neurological: ?SENSORY:?Neurological exam reveals intact sensorium, pain sensation normal, vibration sensation intact, pinprick sensation is normal in the lower extremities, Pt denies, anesthesia, burning, paresthesia, tingling, B/L.?Vascular: ?DP PULSES(B):?2/4, B/L.?PT PULSES(B):?2/4, B/L.?CAPILLARY FILL TIME:?immediate, all digits, B/L.?TROPHIC CONDITION-TEXTURE/ELASTICITY/TURGOR/HAIR GROWTH(B):?normal, B/L.?TEMPERTURE GRADIENT(C):?normal, warm to cool, proximal to distal, B/L.?EDEMA(C):?2/4, non-pitting, Leg(s), Ankle(s), B/L.?ALEJANDRA'S SIGN:?absent, B/L.?PALPABLE CORDS:?absent, B/L.?Dermatologic: ?SKIN FINDINGS:?Skin exam reveals normal color, texture, elasticity, and turgor. There are no masses, nor excrescences. The interspaces are clear, B/L.? Assessment: * Assessment: 1.?Plantar fasciitis of left foot - M72.2???Specify :Response to treatment - Improvement???2.?Edema, lower extremity - R60.0 (Primary)???Specify :Acute problem, Uncomplicated (3), Rx Management (4)???3.?Pain in left foot - M79.672???4.?Calcaneal spur, left foot - M77.32???5.?Interstitial myositis of left foot - M60.172???6.?Bursitis of left foot - M77.52???7.?Hypertrophy of bone, left ankle and foot - M89.372???8.?Flat foot [pes planus] (acquired), left foot - M21.42???9.?Peroneal tendinitis of left lower extremity - M76.72???Specify :Response to treatment - Improvement Response to treatment - Improvement??? Plan: * Treatment: * Procedure Codes:? * Preventive Medicine:? ??Counseling:?Discussion:?-14: Office or other outpatient visit for the evaluation and management of an established patient, which required a medically appropriate history and/or examination and MODERATE level of DECISION MAKING for: 1 OR MORE CHRONIC PROBLEM(S) THATS WORSENING, 2 STABLE CHRONIC PROBLEMS, A NEWLY DIAGNOSED PROBLEM WITH UNCERTAIN PROGNOSIS, AN ACUTE COMPLICATED INJURY WITH MULTIPLE TREATMENT OPTIONS, OR AN ACUTE PROBLEM WITH ACCOMPANYING SYSTEMIC SYMPTOMS, THAT POSE(S) A MODERATE RISK OF MORBIDITY. THIS CONDITION MAY ALSO INCLUDE RX DRUG MANAGEMENT, OR A DECISON FOR MINOR SURGERY. The visit on the day of the [...] have encouraged the patient to call the office.?Edema:?I explained to the patient the possible etiologies for Edema, including genetic, surgery, infection, medications, heart disease, kidney disease, excess dietary salt, and various cancer treatments. We discussed the risks/benefits of the treatment options available including rest, elevation, OTC compression stockings, Rx compression stockings, Unna Boot application, diet modification to limit salt intake, and Rx segmental compression boots provided the absence of CHD in the patients medical history. The advantages and disadvantages of each option were discussed and the patients questions re: risk of infection(cellulitis), medications, diet, and the daily use of compression stockings(not to be worn at night), and consistency in these home treatment regimens for optimal success were answered to their verbally confirmed satisfaction. Given the risk for vessel clotting disease, the patient was instructed to go immediately to the ER of hospital should they experience any calf pain, SOB, or discomfort. Any changes to the patients medication regimen will be performed by the PCP or patients kidney/heart/cancer specialist. The patient has elected to receive compression stockings. Such were Rxed today with instructions for use.?F/u Visit:?The Pt. was counseled on the remaining treatment options and importance of adherence to recomm; the Pt wishes to continue present protocol longer. She will present with inserts and shoes next visit for evaluation.? * Follow Up:?2 Months * Images: * Sign off status: Completed true * Provider:?Angi Gayle DPM Date:?2023 Generated for Jarrod kemp/Matt/eTransmitting on:?08/18/2024 07:57 AM EST History and Physical Notes * HPI (History of Present Illness) Category Sub-Category Detail Notes Category Not es Heel pain Duration: several months Location: Proximal plantar asp ect of Heel, LEFT Aggravated: standing, walking, w alking first thing in the morning/after rest Course: improved , at approx imately 90 % Treatments: rest/alter normal [place] activity , change in shoes , stretching,inserts,medrol bartolo, new balance sneakers, AFO-nightsplint Misc: ? issues with work s hoes and inserts Foot Pain Nature: aching, pulling, tenderness, throbbing, weakness Location: LEFT Duration: , several months Onset: denies trauma Course: , improved , at 90 % Aggravated: any pressure, standi ng, walking Treatments: rest/alter normal da [place] activity, ice , change in shoes , innersoles.medrol bartolo Swelling Location: Both feet/leg Duration: several weeks Course: worse Examination Category Sub-Category Detail Notes Category Not es Neurological SENSORY: Neurological exa m reveals intact [...] joint dorsiflexion ROM, knee extended , FOOTWEAR: pt did not present w ith work shoes however present shoes have 2 pairs of inserts in each shoe- removed 1 TENDONITIS: Pain on palpation, i nflammation, and fusiform swelling to, Peroneal Complex, LEFT, 90 percent LESS General Examination GENERAL APPEARANCE: Reveals [...] CONDITION-TEXTURE/ELASTICITY/TURGOR/HAIR GROWTH (B): normal, B/L EDEMA (C): 2/4, non-pitting, Le g(s), Ankle(s), B/L ALEJANDRA'S SIGN: absent, B/L PALPABLE CORDS: absent, B/L Heel Pain INSPECTION: Pain on Palpatio n to Plantar Fascia med. and central bands, intrinsic musc., infra-calcaneal bursa, and med calc tubercle , LEFT foot, No pain: posterior/superior heel, achilles bursa/tendon, sinus tarsi, peroneals, or with lateral heel compression; no limited STJ ROM, calor, or ecchymosis, LEFT foot, States approximately 90 % LESS
--- NOTE | 2024-08-18 08:03 | MHC.PC.OV ---
Vital Signs 08/18/24 08:04 Height 5 ft 7 in Weight 264 lb BMI 41.3 BP 126/78 Blood Pressure Location Lt brachial Position Sitting Respiration 18 Pulse 57 Pulse Source Pulse Oximeter Temp 97.6 F Temp Source Oral Pulse Oximetry (%) 98 Oxygen Delivery Method Room Air Intake Visit Reasons: Annual PE Intake Note: Pt is here today for PE, Allergies No Known Allergies Allergy (Verified 08/18/24 08:05) Medication List - Last Reconciled 08/18/24 by Neris Schreiber MD albuterol sulfate 90 mcg/actuation (ProAir HFA) 0 mcg inhalation ascorbate calcium (vitamin C) 500 mg PO DAILY atorvastatin 20 mg PO DAILY calcium carbonate (Calcium 600) 600 mg PO DAILY coenzyme Q10 (Ultra CoQ10) 75 mg PO DAILY ferrous sulfate (Feosol) 325 mg PO DAILY glucosamine-chondroitin 250-200 mg (Osteo Bi-Flex) 2 tabs PO TID omega-3 fatty acids (Fish Oil Concentrate) 1,000 mg PO DAILY pregabalin 225 mg PO BEDTIME silver sulfadiazine 1% (Silvadene) 1 appl topical DAILY vitamin B complex (B Complex-Vitamin B12 tablet) 1 tab PO DAILY Tobacco use date assessed: 08/18/24 Fall risk assessment: No Falls in past year Last assessed Fall Risk: 08/18/24 Dental Screening Dental Screen Date: 08/18/24 Did you have a dental visit in the last 12 months?: Yes Did you have a dental problem in the last 6 months where you did not have access to dental care?: No Was dental information given to patient?: Patient has dentist HPI Annual PE HPI Details Patient presents for a physical. She is planning to retired after her birthday this year [facility] Medical History (Updated 08/18/24 @ 08:46 by Neris Schreiber MD) Sarcoidosis Lung nodules Back pain Mediastinal adenopathy Heel spur Abnormal colonoscopy Mammogram normal Normal Pap smear Depression RLS (restless legs syndrome) Annual physical exam Hyperlipidemia Ankle pain Surgical History Hx of cataract surgery No pertinent past surgical history Family History Father Stroke Mother No problems noted. Brother No problems noted. Sister No problems noted. Sister No problems noted. Son No problems noted. Son No problems noted. Social History Housing: House Alcohol intake: never Patient Tobacco Use Status: Never used Tobacco e-Cigarette/Vaping Use: Never Used service: No Current occupational status: employed Cognitive needs: No Hearing needs: No Vision needs: Yes Questionnaire PHQ-9 Over the last 2 weeks, how often have you been bothered by any of the following problems? 1. Little interest or pleasure in doing things: not at all 2. Feeling down, depressed, or hopeless: not at all 3. Trouble falling or staying asleep, or sleeping too much: not at all 4. Feeling tired or having little energy: not at all 5. Poor appetite or overeating: not at all 6. Feeling bad about yourself - or that you are a failure or have let yourself or your family down: not at all 7. Trouble concentrating on things, such as reading the newspaper or watching television: not at all 8. Moving or speaking so slowly that other people could have noticed. Or the opposite - being so fidgety or restless that you have been moving around a lot more than usual: not at all 9. Thoughts that you would be better off or of hurting yourself in some way: not at all Total score: 0 Depression Screening Interpretation: Negative Depression Screening Done: Yes 44870 - PHQ-9 Billing: Yes Source: Developed by Drs. Stephan Goodman, Jasmyn Yun, Jose Alan and colleagues, with an educational hazel from [employer]. Thrive Questionnaire Date Thrive assessed: 08/18/24 I am a: Patient What is your living situation today?: I have a steady place to live Within the past 12 months, did the food you bought not last and you didn't have the money to get more?: I choose not to answer this question Within the past 12 months, did you worry whether your food would run out before you got money to buy more?: I choose not to answer this question Do you have trouble paying for medicines?: No Do you have trouble getting transportation to medical appointments?: No Do you have trouble paying your heating and electricity bill?: No Do you have trouble taking care of your child, family member or friend?: No Do you have trouble with day-to-day activities such as bathing, preparing meals, shopping, managing finances, etc.?: No Are you currently unemployed and looking for a job?: No Are you interested in more education?: No Please select the resources that you would like help with: None Currently or been in a relationship where the following occur: I choose not to answer THRIVE Score: 0 AUDIT C Alcohol Use Questionnaire (AUDIT-C) 1. How often do you have a drink containing alcohol?: Never 3. How often do you have six or more drinks on one occasion?: Never Total Score: 0 JACQUELIN-7 AMB Questionnaire JACQUELIN-7 Date JACQUELIN - 7 assessed: 08/18/24 Feeling nervous, anxious, or on edge: 1 = Several days Not being able to stop or control worryin = More than half the days Worrying too much about different things: 2 = More than half the days Trouble relaxin = More than half the days Being so restless that it is hard to sit still: 2 = More than half the days Becoming easily annoyed or irritable: 0 = Not at all Feeling afraid as if something awful might happen: 0 = Not at all Total JACQUELIN-7 score (0-4 normal; 5-9 mild; 10-14 moderate; 15-21 severe): 9 Source: Developed by Drs. Stephan Goodman, Jasmyn Yun, Jose Alan and colleagues, with an educational hazel from [employer]. JACQUELIN-7 Assessment Billing JACQUELIN-7 Assessment Tool: JACQUELIN-7 Assessment 72753 Review of Systems Const All systems reviewed & are unremarkable except as noted in HPI and below Eyes Reports no additional complaints ENT Reports no additional complaints Card Reports no additional complaints Resp Reports no additional complaints GI Reports no additional complaints Reports no additional complaints Physical exam (Primary Care) Vital Signs: Last Vital Signs Temp 97.6 F 08/18/24 08:04 Pulse 57 08/18/24 08:04 Resp 18 08/18/24 08:04 BP 126/78 08/18/24 08:04 Pulse Ox 98 08/18/24 08:04 Oxygen Delivery Method Room Air 08/18/24 08:04 BMI result Body Mass Index 41.3 Tobacco/Smoking Status: Tobacco use Status Tobacco use date assessed 08/18/24 08/18/24 08:11 Patient Tobacco Use Status Never used Tobacco 08/18/24 08:11 e-Cigarette/Vaping Use Never Used 08/18/24 08:11 PHQ-9: PHQ-9 Score PHQ-9: Total score 0 08/18/24 08:11 Depression Screening Interpretation: Negative Thrive Assessment: Date of Thrive Assessment Date Thrive assessed 08/18/24 08/18/24 08:11 Currently or been in a relationship where the following occur: I choose not to answer Const General: no acute distress HENMT Head: Yes normal to inspection Ears: hearing grossly normal bilaterally Face and sinus: Yes normal facial exam Mouth: Normal oral and palatal mucosa present Throat: Yes posterior oropharynx normal Eyes General: appearance normal, both eyes and all related structures Neck Neck: Yes no lymphadenopathy and Yes supple Resp Effort & Inspection: normal respiratory effort Auscultation: clear to auscultation bilaterally Cardio Rhythm: regular rhythm Heart sounds: S1 normal heart sound present and S2 normal heart sound present GI Inspection: Yes normal to inspection Palpation (GI): Soft to palpation Percussion: Yes normal to percussion Auscultation: normal bowel sounds Coding Level of Care Code Est Pt Prev Care >65y(97156) Diagnoses Annual physical exam Z00.00 Obesity E66.9 Seizure R56.9 Vitamin D deficiency E55.9 LACHELLE (obstructive sleep apnea) G47.33 Postmenopausal Z78.0 Additional Codes JACQUELIN-7 Assessment Billing - JACQUELIN-7 Assessment Tool: JACQUELIN-7 Assessment 04267 ([id number]) PHQ-9 - 24396 - PHQ-9 Billing: Yes ([id number]) Assessment & Plan Assessment & Plan (1) Annual physical exam: Code(s): Z00.00 - Encounter for general adult medical examination without abnormal findings Category: Medical Plan: Well-balanced diet regular physical activity discussed with the patient. She is up-to-date with the mammogram and colonoscopy (2) Obesity: Comment: BMI 44 1/24 Code(s): E66.9 - Obesity, unspecified Category: Medical Plan: Patient has been decreasing caloric intake increasing physical activity for over a year not able to lose weight. She is interested in trying GLP 1 agonist facilitate weight lost and lower risk of complications from morbid obesity including [place] CVA diabetes. Wegovy 0.25 weekly will be started (3) Seizure: Comment: Hospitalized at [facility] 10/27 ,? OD on Lyrica, f/u [facility] neurology, off Keppra Code(s): R56.9 - Unspecified convulsions Category: Medical Plan: Follow-up with neurology (4) Vitamin D deficiency: Code(s): E55.9 - Vitamin D deficiency, unspecified Category: Medical Plan: Continue vitamin-D supplement (5) LACHELLE (obstructive sleep apnea): Comment: on Cpap, f/u neurology Code(s): G47.33 - Obstructive sleep apnea (adult) (pediatric) Category: Medical Plan: Continue CPAP and follow-up with Neurology (6) Postmenopausal: Comment: nl DEXA 11/2023 [facility] Code(s): Z78.0 - Asymptomatic menopausal state Category: Medical Plan: Continue regular physical activity and vitamin-D supplement Orders: Orders Complete Blood Count Auto Diff 1 Year E55.9 - Vitamin D deficiency, unspecified, E66.9 - Obesity, unspecified, R56.9 - Unspecified convulsions, Z00.00 - Encounter for general adult medical examination without abnormal findings Lipid Panel 1 Year E55.9 - Vitamin D deficiency, unspecified, E66.9 - Obesity, unspecified, R56.9 - Unspecified convulsions, Z00.00 - Encounter for general adult medical examination without abnormal findings Vitamin D 25-OH Total 1 Year E55.9 - Vitamin D deficiency, unspecified, E66.9 - Obesity, unspecified, R56.9 - Unspecified convulsions, Z00.00 - Encounter for general adult medical examination without abnormal findings Comprehensive [place]. Panel Fast 1 Year E55.9 - Vitamin D deficiency, unspecified, E66.9 - Obesity, unspecified, Z00.00 - Encounter for general adult medical examination without abnormal findings TSH reflex Free T4 1 Year E55.9 - Vitamin D deficiency, unspecified, E66.9 - Obesity, unspecified, R56.9 - Unspecified convulsions, Z00.00 - Encounter for general adult medical examination without abnormal findings Medications: New semaglutide (weight loss) (Wegovy) administer weeks 1 through 4 of therapy 0.25 mg (0.5 mL) subcut QWEEK 2 mL 1RF
[2024-08-18 08:04] VITALS: BP 126/78; PULSE 57; RESP 18; TEMP 36.4; O2SAT 98; BMI 41.3
== END 2024-08-18 08:50 | disposition home or self-care (01) ==
PROVIDERS: PCP Internal Medicine; Visit Provider Internal Medicine
DX: Z00.00 Encounter for general adult medical examination without abnormal findings (principal); E66.9 Obesity, unspecified; R56.9 Unspecified convulsions; Z68.41 Body mass index [BMI] 40.0-44.9, adult; E55.9 Vitamin D deficiency, unspecified; G47.33 Obstructive sleep apnea (adult) (pediatric); Z78.0 Asymptomatic menopausal state

== ENCOUNTER → 2024-08-18 07:55 | Outpatient (BNVA) | payer OTHER, SELFPAY | PROVIDERS: PCP Internal Medicine; Visit Provider Internal Medicine | DX: Z00.00 Encounter for general adult medical examination without abnormal findings (principal); E66.9 Obesity, unspecified; Z68.41 Body mass index [BMI] 40.0-44.9, adult; R56.9 Unspecified convulsions; E55.9 Vitamin D deficiency, unspecified; G47.33 Obstructive sleep apnea (adult) (pediatric); Z78.0 Asymptomatic menopausal state; Z99.89 Dependence on other enabling machines and devices | CPT/HCPCS: 96127 ==